=== PATIENT | female | born 1975 | race Hispanic/Latino ===

== ENCOUNTER 2016-10-08 02:19 | Emergency (ER) | payer BC, OTHER ==
[2016-10-08] MEDS ORDERED: MAG-AL PLUS XS SUSP 30 ML UDC ONE (02:39)
[2016-10-08] MEDS ORDERED: LIDOCAINE VISCOUS 2% 15 ML UDC ONE (02:39)
[2016-10-08 02:48] LABS: BASOPHILS 0.2 % (0.0-2.0); EOSINOPHILS 1.7 % (0.0-6.0); EOSINOPHILS# 0.2 X 10^3uL (0.0-0.4); HEMATOCRIT 45.3 % (36.0-48.0); HEMOGLOBIN 14.7 g/dL (12.0-16.0); LYMPHOCYTES 18.1 % (20.0-40.0); LYMPHOCYTES# 2.4 X 10^3uL (0.8-3.8); MEAN CELL VOLUME 86.8 fL (84.0-102.0); MEAN CORPUS. HGB CONCENTRATION 32.3 g/dL (32.0-36.0); MEAN CORPUSCULAR HEMOGLOBIN 28.1 pg (29.0-35.0); MEAN PLATELET VOLUME 8.3 fL (7.4-10.4); MONOCYTES 6.5 % (2.0-10.0); MONOCYTES# 0.9 X 10^3uL (0.2-1.0); NEUTROPHILS 73.5 % (54.0-75.0); NEUTROPHILS# 9.8 X 10^3uL (2.6-6.7); PLATELET COUNT 262 X 10^3uL (130-440); RED BLOOD COUNT 5.22 X 10^6uL (4.20-6.10); RED CELL DISTRIBUTION WIDTH 12.8 % (11.5-14.5); WHITE BLOOD COUNT 13.3 X 10^3uL (3.9-10.7)
[2016-10-08 02:59] LABS: ALBUMIN 3.9 g/dL (3.5-5.0); ALKALINE PHOSPHATASE 91 U/L (38-126); ALT 40 U/L (9-52); AST 24 U/L (14-36); BILIRUBIN, DIRECT 0.2 mg/dL (0.0-0.4); BILIRUBIN, TOTAL 0.5 mg/dL (0.2-1.3); BLOOD UREA NITROGEN 14 mg/dL (7-17); CALCIUM 9.2 mg/dL (8.4-10.2); CHLORIDE 103 mmol/L (98-107); CREATININE 0.7 mg/dL (0.5-1.0); EST GLOMERULAR FILTRATION RATE > 60 mL/min; GLUCOSE 121 mg/dL (70-100); LIPASE 217 U/L (23-300); POTASSIUM 3.6 mmol/L (3.5-5.1); SODIUM 137 mmol/L (137-145); TOTAL PROTEIN 7.4 g/dL (6.3-8.2)
[2016-10-08] MEDS ORDERED: PANTOPRAZOLE 40 MG VIAL IV ONE (03:04)
[2016-10-08] MEDS ORDERED: NORMAL SALINE 100 ML IV ONE (03:06)
[2016-10-08 03:11] LABS: TROPONIN I < 0.012 ng/mL (0.00-0.034)
[2016-10-08] MEDS ORDERED: MORPHINE SULFATE 4 MG/ML SYR ONE (03:41)
--- NOTE | 2016-10-08 03:43 | ER NURSING DOCUMENTATION ---
Nurse's Notes [facility] Name:Birdie Navarro Age:41 yrs Sex:Female :1975 Arrival Date:10/08/2016 Time:02:19 BedTrauma C Private MD:Manasa Bell Diagnosis:Gastritis Presentation: 10/08 02:27 Acuity: BUDDY 2 rh 02:36 Presenting complaint: Patient states: Last night pt was having RUQ abdominal cramping, rh she felt a heaviness in her chest that radiated to her RUQ as well. PT states it feels like something is stuck in her chest. Transition of care: Home. 02:36 Method Of Arrival: Walk In Triage Assessment: 02:38 General: Appears uncomfortable, Behavior is cooperative. Pain: Complains of pain in rh mid-sternal area and right upper quadrant. Neuro: Level of Consciousness is awake, alert, obeys commands. Cardiovascular: Capillary refill < 3 seconds Denies lightheadedness, Rhythm is sinus rhythm Chest pain is described as mild, quality is heaviness, pressure, is located in substernal area radiates to right Abdomen began 1 day ago episodes are intermittent. Respiratory: Airway is patent Respiratory effort is even, unlabored. GI: Abdomen is obese, Reports cramping, heartburn, similar to past Denies diarrhea, nausea. : No deficits noted. Derm: Skin is intact, is healthy with good turgor, Skin is pink, warm & dry. Historical: - Allergies: No known drug Allergies; - Home Meds: 1. None - PMHx: ANEMIA; Elevated liver enzymes; Ankle Sprain (August 06, 2016); - PSHx: ; CHOLECYSECTOMY; TONSILLECTOMY; KNEE SURGERY; - Tetanus: < 10 years. - Ebola Screening: : Patient negative for fever greater than or equal to 101.5 degrees Fahrenheit, and additional compatible Ebola Virus Disease symptoms. - Immunization history: Flu Vaccine < 1 year. - Social history: Smoking status: Patient states was never smoker of tobacco. Screenin:41 Infectious Disease Risk None. Abuse screen: Denies threats or abuse. Denies injuries rh from another. Nutritional screening: No deficits noted. Assessment: 02:41 See Triage Assessment done by same RN. Vital Signs: 02:35 BP 115 / 83; Pulse 94; Resp 16; Temp 98.0; Pulse Ox 94% on R/A; Weight 67.13 kg; Height rh 4 ft. 9 in. (144.78 cm); Pain 8/10; 03:34 BP 96 / 68; Pulse 91; Resp 16; Pulse Ox 94% on R/A; Pain 4/10; rh 02:35 Body Mass Index 32.03 (67.13 kg, 144.78 cm) rh ED Course: 02:20 Patient arrived in ED. ma1 02:21 Manasa Bell MD is Private Physician. 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 Pulse ox on. NIBP on. rh 02:25 EKG done. (by ED staff). Reviewed by Aly Hough MD. rh 02:27 Brooke Chaidez is Primary Nurse. rh 02:27 Triage completed. rh 02:27 Inserted peripheral IV: 20 gauge in right forearm and blood collected. rh 02:35 Notified ED Physician of patient's arrival and chief complaint. Dr. Hough notified. rh 02:41 Aly Hough MD is Attending Physician. 02:41 Valuables Remains with patient Patient has correct armband on for positive rh identification. Placed in gown. Bed in low position. Call light in reach. Side rails up X 1. Family accompanied patient. 03:11 Port Xray Completed. ds2 03:23 Manasa Bell MD is Referral Physician. 03:23 Conrad Bailey MD is Referral Physician. 03:30 EKG attached rh Administered Medications: 02:30 Drug: GI Cocktail w/o Donnatol - (Maalox Suspension 30 ml, Lidocaine Liquid 2 % 15 ml); rh Route: PO; 02:59 Follow up: Response: No change in condition rh 02:58 Drug: Protonix 40 mg; Route: IVPB; Site: right wrist; rh 03:15 Follow up: IV Status: Completed infusion; IV Intake: 100ml rh 03:34 Drug: morphine 4 mg; {Note: ADMINISTERED BY HERON BENITEZ .} Route: IVP; Site: right wrist; 03:42 Follow up: Response: Pain is decreased rh Intake: 03:15 IV: 100ml; Total: 100ml. rh Outcome: 03:23 Discharge ordered by . 03:41 Discharged to home ambulatory, with significant other. 03:41 Condition: improved 03:41 Discharge Assessment: Patient awake, alert and oriented x 3. No cognitive and/or functional deficits noted. Patient verbalized understanding of disposition instructions. 03:41 Discharge instructions given to patient, significant other, Instructed on discharge instructions, follow up and referral plans. medication usage, Demonstrated understanding of instructions, medications, Prescriptions given X 1. 03:41 IV D/Edvin 03:42 Patient left the ED. 10/09 09:19 Discharge F/U Call: Unable to reach: non-working number nf Signatures: Jolanta Carvalho RN RN Aly Nolan MD MD jm Scarbrough, Dayna ds2 Brooke Chaidez Ivana Rock ma1
--- NOTE | 2016-10-08 03:43 | ER PHYSICIAN DOCUMENTATION ---
Physician Documentation [facility] Name:Birdie Navarro Age:41 yrs Sex:Female :1975 Arrival Date:10/08/2016 Time:02:19 BedTrauma C Private MD:Manasa Bell EDGianlucaAly Disposition: 10/08/16 03:23 Discharged to Home/Self Care. Impression: Gastritis. - Condition is Good. - Discharge Instructions: GASTRITIS vs. ULCER. - Prescriptions for Carafate 1 gram Oral - take 1 tablet by ORAL route 4 times per day take on an empty stomach, beginning on waking and last dose at bedtime; 50 tablet. - Medical Reconciliation form form. - Follow up: Manaas Bell MD; When: 2 - 3 days; Reason: Continuance of care. Follow up: Conrad Bailey MD; When: 1 week; Reason: Continuance of care. - Problem is new. - Symptoms have improved. - Notes: Also take omeprazole (prilosec) every day, 30 minutes before dinner. HPI: 10/08 03:06 This 41 yrs old Female presents to ER via Walk In with complaints of Chest jm Tightness. 03:06 The patient or guardian reports chest pain that is located primarily in the epigastric jm area. Onset: at 00:00. The pain radiates to throat. The pain has moved or radiated since the onset. Associated signs and symptoms: Pertinent positives: nausea. The chest pain is described as burning, a heaviness. Duration: The patient or guardian reports a single episode, that is still ongoing, that lasted 3 hour(s). Modifying factors: the symptoms are aggravated by nothing. Severity of pain: in the emergency department the pain has improved markedly. This patient does not have any risk factors related to chest pain. The patient has experienced a previous episode, feels like heartburn, but way worse. . The patient has not recently seen a physician. Pt's been sick w diarrhea and nausea, but no vomiting for the past few days. Pt also has been using prednisone for bug bites, since visiting [place]. Pt has epigastric pain radiating up the center of her chest. She feels like something is stuck there, but she is able to swallow. . Historical: - Allergies: No known drug Allergies; - Home Meds: 1. None - PMHx: ANEMIA; Elevated liver enzymes; Ankle Sprain (August 06, 2016); - PSHx: ; CHOLECYSECTOMY; TONSILLECTOMY; KNEE SURGERY; - Tetanus: < 10 years. - Ebola Screening: : Patient negative for fever greater than or equal to 101.5 degrees Fahrenheit, and additional compatible Ebola Virus Disease symptoms. - Immunization history: Flu Vaccine < 1 year. - Social history: Smoking status: Patient states was never smoker of tobacco. ROS: 03:09 Constitutional: Positive for fatigue, fever. jm 03:09 Cardiovascular: Positive for chest pain, Negative for edema, orthopnea. 03:09 Respiratory: Negative for cough, shortness of breath. 03:09 Abdomen/GI: Positive for abdominal pain, nausea, diarrhea. 03:09 Back: Negative for radiated pain. 03:09 : Negative for pelvic pain, flank pain. 03:09 MS/extremity: Negative for swelling, tenderness. 03:09 Skin: Negative for diaphoresis, rash, swelling. 03:09 Neuro: Negative for dizziness, headache. 03:09 Psych: Negative for drug dependence, alcohol dependence. 03:09 All other systems are negative. Exam: 03:09 Constitutional: The patient appears alert, awake, obese. jm 03:09 Eyes: Periorbital structures: appear normal, Conjunctiva: normal. 03:09 ENT: Dental exam: normal, Voice: is normal. 03:09 Neck: Thyroid: appears normal, Trachea: is midline with no obvious abnormalities. 03:09 Chest/axilla: Palpation: tenderness, that is moderate, of the xyphoid area, that totally reproduces the patient's complaints. 03:09 Cardiovascular: Rate: normal, Rhythm: regular. 03:09 Respiratory: Respirations: normal, Breath sounds: are normal. 03:09 Abdomen/GI: Bowel sounds: normal, Palpation: moderate abdominal tenderness, in the epigastric area. 03:09 Musculoskeletal/extremity: DVT Exam: No signs of deep vein thrombosis. Calves: are non-tender, have equal circumference. 03:09 Skin: Appearance: diaphoresis is not appreciated, no rash present. 03:09 Neuro: Mentation: is normal, Memory: is normal. 03:09 Psych: Behavior/mood is cooperative, Affect is calm. Vital Signs: 02:35 BP 115 / 83; Pulse 94; Resp 16; Temp 98.0; Pulse Ox 94% on R/A; Weight 67.13 kg; Height rh 4 ft. 9 in. (144.78 cm); Pain 8/10; 03:34 BP 96 / 68; Pulse 91; Resp 16; Pulse Ox 94% on R/A; Pain 4/10; rh 02:35 Body Mass Index 32.03 (67.13 kg, 144.78 cm) rh MDM: 02:41 Patient medically screened. 03:00 Data reviewed: and as a result, I will discharge patient. Test interpretation: by ED jm physician or midlevel provider: ECG. Counseling: I had a detailed discussion with the patient and/or guardian regarding: the historical points, exam findings, and any diagnostic results supporting the discharge/admit diagnosis, lab results, radiology results, the need for outpatient follow up, with the patient's primary care provider. ECG:. Medication response: The patient's symptoms have improved, ED course: Pt is palpable and epigastric. Pt given GI cocktail which improved the pain, but did not take it away completely. I suspect ulcer. Cardiac w/u was negative. Pt given Carafate and told to take omeprazole every day. Pt given Dr. Bailey f/u. . 03:11 Differential diagnosis: acute myocardial infarction, acute pericarditis, chest wall jm pain, esophagitis, gastritis, gastroesophageal reflux disease (GERD), pancreatitis, peptic ulcer disease. Data reviewed: vital signs, nurses notes, old medical records, lab test result(s), EKG, radiologic studies. 03:30 EKG attached 10/08 03:12 Order name: CBC AUTO DIF, MDIF/RMOR IF IND; Complete Time: 03:15 EDNH 10/08 03:12 Order name: BASIC METABOLIC PANEL; Complete Time: 03:15 EDNH 10/08 03:12 Order name: HEPATIC PANEL; Complete Time: 03:15 EDMS 10/08 03:12 Order name: LIPASE; Complete Time: 03:15 EDNH 10/08 03:12 Order name: TROPONIN I; Complete Time: 03:15 EDNH 10/08 02:28 Order name: EKG - 12 Lead; Complete Time: 02:36 10/08 03:02 Order name: Cardiac Monitoring - Continuous; Complete Time: 03:02 10/08 03:02 Order name: Iv Saline Lock; Complete Time: 03:02 EC:00 Rhythm is regular. QRS [place] is Normal. WA interval is normal. QT interval is normal. No jm Q waves. T waves are Normal. No ST changes noted. Dispensed Medications: 02:30 Drug: GI Cocktail w/o Donnatol - (Maalox Suspension 30 ml, Lidocaine Liquid 2 % 15 ml); rh Route: PO; 02:59 Follow up: Response: No change in condition 02:58 Drug: Protonix 40 mg; Route: IVPB; Site: right wrist; rh 03:15 Follow up: IV Status: Completed infusion; IV Intake: 100ml 03:34 Drug: morphine 4 mg; {Note: ADMINISTERED BY HERON BENITEZ .} Route: IVP; Site: right wrist; 03:42 Follow up: Response: Pain is decreased rh Signatures: Aly Hough MD MD jm Hofsess, Rachel
--- NOTE | 2016-10-08 13:10 | RADIOLOGY REPORT ---
A limited single portable view of the chest demonstrates the heart, vessels and lungs to be unremarkable. No infiltrate, fluid or pneumothorax is seen. IMPRESSION: Unremarkable limited single portable view of the chest. MTDD
== END 2016-10-08 03:43 | disposition home or self-care (01) ==
LOC: ER 02:19
DX: K29.70 Gastritis, unspecified, without bleeding (principal); R07.89 Other chest pain; R50.9 Fever, unspecified; R53.83 Other fatigue
CPT/HCPCS: 71010; 80048; 80076; 83690; 84484; 85025; 93005; 96365; 96375; 99284; J2270

== ENCOUNTER 2016-11-17 12:17 | Emergency (ER) | payer BC, OTHER ==
[2016-11-17] MEDS ORDERED: MAG-AL PLUS XS SUSP 30 ML UDC ONE (12:33)
[2016-11-17] MEDS ORDERED: PHENOBARB/HYOSCY/ATROPINE/SCOP 16.2 MG/5 ML SYR ONE (12:33)
[2016-11-17] MEDS ORDERED: LIDOCAINE VISCOUS 2% 15 ML UDC ONE (12:34)
[2016-11-17] MEDS ORDERED: PANTOPRAZOLE 40 MG VIAL IV ONE (12:57)
[2016-11-17] MEDS ORDERED: NORMAL SALINE ADDVANTAGE 100 ML IV ONE (12:58)
[2016-11-17 13:02] LABS: BASOPHILS 0.5 % (0.0-2.0); EOSINOPHILS 1.3 % (0.0-6.0); EOSINOPHILS# 0.1 X 10^3uL (0.0-0.4); HEMATOCRIT 43.8 % (36.0-48.0); LYMPHOCYTES 36.3 % (20.0-40.0); LYMPHOCYTES# 3.1 X 10^3uL (0.8-3.8); MEAN CELL VOLUME 85.5 fL (80.0-100.0); MEAN CORPUS. HGB CONCENTRATION 34.2 g/dL (32.0-36.0); MEAN CORPUSCULAR HEMOGLOBIN 29.2 pg (29.0-35.0); MEAN PLATELET VOLUME 8.7 fL (7.4-10.4); MONOCYTES 7.6 % (2.0-10.0); MONOCYTES# 0.7 X 10^3uL (0.2-1.0); NEUTROPHILS 54.3 % (54.0-75.0); NEUTROPHILS# 4.7 X 10^3uL (2.6-6.7); PLATELET COUNT 214 X 10^3uL (130-440); RED BLOOD COUNT 5.12 X 10^6uL (4.20-6.10); RED CELL DISTRIBUTION WIDTH 12.4 % (11.5-14.5); WHITE BLOOD COUNT 8.6 X 10^3uL (3.9-10.7)
[2016-11-17 13:09] LABS: ALBUMIN 4.3 g/dL (3.5-5.0); ALKALINE PHOSPHATASE 100 U/L (38-126); ALT 52 U/L (9-52); AST 37 U/L (14-36); BILIRUBIN, DIRECT 0.2 mg/dL (0.0-0.4); BILIRUBIN, TOTAL 0.8 mg/dL (0.2-1.3); BLOOD UREA NITROGEN 21 mg/dL (7-17); CALCIUM 9.3 mg/dL (8.4-10.2); CHLORIDE 103 mmol/L (98-107); CREATININE 0.9 mg/dL (0.5-1.0); EST GLOMERULAR FILTRATION RATE > 60 mL/min; GLUCOSE 101 mg/dL (70-100); LIPASE 140 U/L (23-300); POTASSIUM 3.7 mmol/L (3.5-5.1); SODIUM 136 mmol/L (137-145)
[2016-11-17] MEDS ORDERED: GLUCAGON,HUMAN RECOMBINANT 1 MG/ML KIT ONE (13:14)
--- NOTE | 2016-11-17 13:34 | ER PHYSICIAN DOCUMENTATION ---
Physician Documentation [facility] Name:Birdie Navarro Age:41 yrs Sex:Female :1975 Arrival Date:11/17/2016 Time:12:17 Bed4 Private MD:Manasa Bell ED PhysicianMiguel landers Disposition: 11/17/16 13:23 Discharged to Home/Self Care. Impression: Gastritis, Dehydration. - Condition is Good. - Discharge Instructions: DEHYDRATION (6y-Adult), GASTRITIS (Adult), GASTRITIS vs. ULCER. - Prescriptions for Prilosec 20 mg Oral - take 1 capsule by ORAL route once daily; 21 capsule. - Medical Reconciliation form form. - Follow up: Manasa Bell MD; When: 12/02/2016; Reason: Recheck today's complaints, Continuance of care. - Problem is new. - Symptoms are resolved. - Notes: Avoid spicey foods and stay on a Gabriels Diet. Take Maalox 30ml by mouth one hour before and after meals and at bedtime for 2 days. Take Prilosec 20mg by mouth every day for 14 days. Avoid alcohol, chocolate, onions, fatty foods, acidic food, caffeine, citrus drinks and red sauce. Drink plenty of fluids to stay hydrated. HPI: 11/17 12:20 This 41 yrs old Female presents to ER via Walk In with complaints of Abdominal cd Pain. 12:20 The patient presents with abdominal pain in the right upper quadrant. Onset: The cd symptoms/episode began/occurred acutely, just prior to arrival, today, after eating a tuna fish sandwich. The symptoms radiate to right back. Associated signs and symptoms: Pertinent positives: anorexia, nausea, Pertinent negatives: blood in stools, chest pain, diarrhea, dysuria, fever, vomiting, vomiting blood. The symptoms are described as constant, sharp. Severity of pain: At its worst the pain was severe in the emergency department the pain is unchanged. The patient has experienced a previous episode, last month, and the symptoms today are exactly the same, diagnosed with Gastritis; Patient reports she has had her GB removed in the past.... 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 Heartburn medication - PMHx: ANEMIA; Elevated liver enzymes; Ankle Sprain (August 06, 2016); Gastritis (October 08, 2016); - PSHx: ; CHOLECYSECTOMY; TONSILLECTOMY; KNEE SURGERY; - Tetanus: unknown. - Ebola Screening: : No symptoms or risks identified at this time. . - Immunization history: Flu Vaccine unknown. - Social history: Smoking status: unknown if patient ever smoked tobacco. ROS: 12:30 Cardiovascular: Negative for chest pain, palpitations, edema and pleuritic pain. cd Respiratory: Negative for shortness of breath, dyspnea on exertion, cough, sputum production, wheezing, hemoptysis and pleuritic chest pain. 12:30 Back: Negative for injury, pain or muscle spasms. cd 12:30 Constitutional: Positive for poor PO intake, Negative for chills, fever. 12:30 Abdomen/GI: Positive for abdominal pain, nausea, anorexia, Negative for vomiting, abdominal cramps, abdominal distension, hematemesis, black/tarry stool, rectal bleeding. 12:30 All other systems are negative. Exam: ENT: Nares patent. No nasal discharge, no septal abnormalities noted. Tympanic membranes are normal and external auditory canals are clear. Oropharynx with no redness, swelling, or masses, exudates, or evidence of obstruction, uvula midline. Mucous membranes moist. Chest/axilla: Normal chest wall appearance and motion. Nontender with no deformity. No lesions are appreciated. Back: No spinal tenderness. No costovertebral tenderness. Full range of motion. Skin: Warm, dry with normal turgor. Normal color with no rashes, no lesions, and no evidence of cellulitis. MS/ Extremity: Pulses equal, no cyanosis. Neurovascular intact. Full, normal range of motion. 12:30 Neuro: Awake and alert, GCS 15, oriented to person, place, time, and situation. cd Cranial nerves II-XII grossly intact. Motor strength 5/5 in all extremities. Sensory grossly intact. Cerebellar exam normal. Normal gait. 12:30 Constitutional: The patient appears alert, awake, non-diaphoretic, non-toxic, well developed, well nourished, anxious, obese, in obvious distress, moderately distressed. 12:30 Cardiovascular: Rate: normal, Rhythm: regular, Pulses: no pulse deficits are appreciated. 12:30 Respiratory: the patient does not display signs of respiratory distress, Breath sounds: are normal, clear throughout. 12:30 Abdomen/GI: Inspection: abdomen appears normal, Bowel sounds: normal, active, Palpation: moderate abdominal tenderness, in the epigastric area, mass, is not appreciated, rebound tenderness, is not appreciated, voluntary guarding, is elicited in the epigastric area, involuntary guarding, is not appreciated, no appreciated organomegaly, Indicators: McBurney's point is not tender, Salamanca's sign is negative. Vital Signs: 12:31 BP 116 / 81; Pulse 76; Resp 18; Temp 97.7(O); Pulse Ox 95% ; Weight 67.13 kg; Height 4 ma ft. 9 in. (144.78 cm) (R); Pain 8/10; 12:51 BP 121 / 76; Pulse 84; Pulse Ox 96% ; Pain 4/10; ma 13:24 BP 118 / 76; Pulse 88; Pulse Ox 94% ; Pain 0/10; ma 12:31 Body Mass Index 32.03 (67.13 kg, 144.78 cm) ma MDM: 12:20 Patient medically screened. cd 12:35 Data interpreted: Pulse oximetry:. cd 12:50 Differential diagnosis: gastritis, gastroesophageal reflux disease, non-specific abd cd pain, Peptic Ulcer Disease, Perf. Duodenal Ulcer, Perf. Gastric Ulcer, Gastritis. 13:00 Data reviewed: vital signs, nurses notes, old medical records, and as a result, I will cd administer IV fluids, NS bolus, NS maintenence, and GI Cocktails. Data interpreted: Pulse oximetry: on room air is 94 %. Interpretation: normal. 13:20 Counseling: I had a detailed discussion with the patient and/or guardian regarding: the cd historical points, exam findings, and any diagnostic results supporting the discharge/admit diagnosis, lab results, the need for outpatient follow up, for a recheck, with the patient's primary care provider, to return to the emergency department if symptoms worsen or persist or if there are any questions or concerns that arise at home. Response to treatment: the patient's symptoms have resolved after treatment, the patient's condition has returned to base line, the patient is now symptom free, patient is well hydrated. and as a result, I will discharge patient. 11/17 13:04 Order name: CBC AUTO DIF, MDIF/RMOR IF IND; Complete Time: 13:17 EDMS 11/17 13:16 Interpretation: Normal. cd 11/17 13:10 Order name: BASIC METABOLIC PANEL; Complete Time: 13:17 EDMS 11/17 13:17 Interpretation: Normal. cd 11/17 13:10 Order name: HEPATIC PANEL; Complete Time: 13:17 EDMS 11/17 13:17 Interpretation: Normal. cd 11/17 13:10 Order name: LIPASE; Complete Time: 13:17 EDMS 11/17 13:17 Interpretation: Normal. cd 11/17 12:21 Order name: NPO; Complete Time: 12:51 cd Dispensed Medications: 12:22 CANCELLED (Physician Discretion): GI Cocktail w/o Donnatol - (Maalox Suspension 30 ml, cd Lidocaine Liquid 2 % 15 ml) PO once 12:32 Drug: GI Cocktail w/ Donnatol - (Maalox Suspension 30 ml, Phenobarbital-Belladonna 15 ma ml, Lidocaine Liquid 2 % 15 ml); Route: PO; 13:26 Follow up: Response: Marked relief of symptoms ma 12:42 Drug: NS 0.9% 1000 ml; Volume: 1000 ml; Route: IV; Rate: bolus; Site: left antecubital; ma Delivery: [place] Tubing; 13:25 Follow up: IV Status: Completed infusion; IV Intake: 1000ml ma 12:51 Drug: Protonix 40 mg; Route: IVPB; Rate: per protocol; Site: left antecubital; ma Delivery: [place] Tubing; 13:20 Follow up: IV Status: Completed infusion; IV Intake: 100ml ma 13:25 Follow up: Response: Marked relief of symptoms ma 13:08 Drug: Glucagon 1 mg; Route: IM; Site: left deltoid; ma 13:25 Follow up: Response: Marked relief of symptoms ma 13:24 CANCELLED (Patient Refused): Zofran 4 mg IVP once over 2 mins ma 13:24 CANCELLED (Patient Refused): Dilaudid 1 mg IVP once ma Signatures: Kelsey Nickerson, RN RN Miguel Prince MD MD cd
--- NOTE | 2016-11-17 13:34 | ER NURSING DOCUMENTATION ---
Nurse's Notes [facility] Name:Birdie Navarro Age:41 yrs Sex:Female :1975 Arrival Date:11/17/2016 Time:12:17 Bed4 Private MD:Manasa Bell Diagnosis:Gastritis;Dehydration Presentation: 11/17 12:22 Acuity: BUDDY 3 ma 12:28 Presenting complaint: Patient states: Pt describes severe RUQ pain after eating Tuna ma one hour ago States radiates around right ribs to back States was seen for same one month ago. Transition of care: Other [facility] [place] employee. 12:28 Method Of Arrival: Walk In [place] Triage Assessment: 12:30 General: Appears uncomfortable, well developed, well nourished, well groomed, Behavior ma is anxious, cooperative, crying. Pain: Complains of pain in xyphoid area, right lateral posterior chest and right breast. GI: Abdomen is flat, Abd is soft. 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 Heartburn medication - PMHx: ANEMIA; Elevated liver enzymes; Ankle Sprain (August 06, 2016); Gastritis (October 08, 2016); - PSHx: ; CHOLECYSECTOMY; TONSILLECTOMY; KNEE SURGERY; - Tetanus: unknown. - Ebola Screening: : No symptoms or risks identified at this time. . - Immunization history: Flu Vaccine unknown. - Social history: Smoking status: unknown if patient ever smoked tobacco. Screenin:32 Infectious Disease Risk None. Abuse screen: Denies threats or abuse. Nutritional ma screening: No deficits noted. Assessment: 12:52 Reassessment: Patient states feeling better. Patient states symptoms have improved. ma Patient appears in no apparent distress at this time. States pain is much less Declines IV pain meds at this time. 13:09 Reassessment: Pt describes feelin of FB to lower esopagus States water feels like its ma not going down. Vital Signs: 12:31 BP 116 / 81; Pulse 76; Resp 18; Temp 97.7(O); Pulse Ox 95% ; Weight 67.13 kg; Height 4 ma ft. 9 in. (144.78 cm) (R); Pain 8/10; 12:51 BP 121 / 76; Pulse 84; Pulse Ox 96% ; Pain 4/10; ma 13:24 BP 118 / 76; Pulse 88; Pulse Ox 94% ; Pain 0/10; ma 12:31 Body Mass Index 32.03 (67.13 kg, 144.78 cm) ma ED Course: 12:19 Patient arrived in ED. lm3 12:19 Manasa Bell MD is Private Physician. lm3 12:20 Miguel Lira MD is Attending Physician. cd 12:22 Kelsey Nickerson, RN is Primary Nurse. ma 12:22 Triage completed. ma 12:32 Valuables Remains with patient Patient has correct armband on for positive ma identification. Placed in gown. Bed in low position. Side rails up X 1. Pulse Ox - RN Monitoring Only NIBP On - RN Monitoring Only. 12:40 Inserted peripheral IV: 20 gauge in left antecubital area and blood collected. ma 13:22 Manasa Bell MD is Referral Physician. cd Administered Medications: 12:22 CANCELLED (Physician Discretion): GI Cocktail w/o Donnatol - (Maalox Suspension 30 ml, cd Lidocaine Liquid 2 % 15 ml) PO once 12:32 Drug: GI Cocktail w/ Donnatol - (Maalox Suspension 30 ml, Phenobarbital-Belladonna 15 ma ml, Lidocaine Liquid 2 % 15 ml); Route: PO; 13:26 Follow up: Response: Marked relief of symptoms ma 12:42 Drug: NS 0.9% 1000 ml; Volume: 1000 ml; Route: IV; Rate: bolus; Site: left antecubital; ma Delivery: [place] Tubing; 13:25 Follow up: IV Status: Completed infusion; IV Intake: 1000ml ma 12:51 Drug: Protonix 40 mg; Route: IVPB; Rate: per protocol; Site: left antecubital; ma Delivery: [place] Tubing; 13:20 Follow up: IV Status: Completed infusion; IV Intake: 100ml ma 13:25 Follow up: Response: Marked relief of symptoms ma 13:08 Drug: Glucagon 1 mg; Route: IM; Site: left deltoid; ma 13:25 Follow up: Response: Marked relief of symptoms ma 13:24 CANCELLED (Patient Refused): Zofran 4 mg IVP once over 2 mins ma 13:24 CANCELLED (Patient Refused): Dilaudid 1 mg IVP once ma Intake: 13:20 IV: 100ml; Total: 100ml. ma 13:25 IV: 1000ml; Total: 1100ml. ma Outcome: 13: Discharge ordered by . johan 13: Discharged to Back to work ma 13: Condition: improved 13:29 Discharge instructions given to patient, Instructed on discharge instructions, follow up and referral plans. medication usage, Demonstrated understanding of instructions, medications, Prescriptions given X 1. 13:33 Patient left the ED. nh 11/18 10:34 Discharge F/U Call: Unable to reach: non-working number sj Signatures: Kelsey Nickerson, RN RN Miguel Prince MD MD cd Janzen, Sarah sj McKibbon-Moore, Lisa lm3
== END 2016-11-17 13:34 | disposition home or self-care (01) ==
LOC: ER 12:17
DX: K29.70 Gastritis, unspecified, without bleeding (principal); E86.0 Dehydration
CPT/HCPCS: 80048; 80076; 83690; 85025; 96365; 96372; 99284; J1610